=== PATIENT | male | born 1960 | race Caucasian/White ===

== ENCOUNTER 2021-01-23 07:22 | Day surgery (SDC) | payer OTHER, SELFPAY ==
[~2021-01-23] VITALS: Ht 177.8 cm; Wt 104.3 kg
[~2021-01-23 07:22] MED LIST: CEFAZOLIN SOD 1 GM in D5W 50 ML IV ONE
[2021-01-23] MEDS ORDERED: NS 1000 ML IV.SOLN IV ONE (09:35)
[2021-01-23] MEDS ORDERED: SUGAMMADEX SODIUM 200 MG/2 ML VIAL IV ONE (09:35)
[2021-01-23] MEDS ORDERED: fentaNYL CITRATE/PF 100 MCG/2 ML AMP IVP ONE (09:35)
[2021-01-23] MEDS ORDERED: BUPIVACAINE /PF 0.25% 30 ML VIAL INJ ONE (09:35)
[2021-01-23] MEDS ORDERED: DEXAMETHASONE SOD PHOSPHATE 4 MG/ML VIAL IVP ONE (09:35)
[2021-01-23] MEDS ORDERED: PROPOFOL 200MG/ 20ML VIAL (DIPRIVAN) IV ONE (09:35)
[2021-01-23] MEDS ORDERED: ROCURONIUM BROMIDE 10 MG/ML (ZEMURON) IV ONE (09:35)
[2021-01-23] MEDS ORDERED: DESFLURANE 15 MIN GAS INH ONE (09:35)
[2021-01-23] MEDS ORDERED: ONDANSETRON HCL 4 MG/2 ML VIAL IVP ONE (09:35)
[2021-01-23] MEDS ORDERED: LR 1,000 ML IV.SOLN IV ONE (09:35)
[2021-01-23] MEDS ORDERED: MIDAZOLAM HCL 5 MG/5 ML VIAL IVP ONE (09:35)
[2021-01-23] MEDS ORDERED: hydrALAZINE HCL 20 MG/ML VIAL IVP PRN (10:15)
[2021-01-23] MEDS ORDERED: LABETALOL 100 MG/ 20ML VIAL IVP PRN (10:15)
[2021-01-23] MEDS ORDERED: LR 1,000 ML IV SCH (10:15)
[2021-01-23] MEDS ORDERED: ONDANSETRON HCL 4 MG/2 ML VIAL IVP PRN (10:15)
[2021-01-23] MEDS ORDERED: MEPERIDINE HCL/PF 25 MG/ML DISP.SYRIN IVP PRN (10:15)
[2021-01-23] MEDS ORDERED: MIDAZOLAM HCL 2 MG/2 ML VIAL (VERSED) IVP PRN (10:15)
[2021-01-23] MEDS ORDERED: HYDROmorphone 1 MG/ML INJ. CARTRIDGE IVP PRN ×3 (10:15→10:45)
[2021-01-23] MEDS ORDERED: METOCLOPRAMIDE HCL 10 MG/2 ML VIAL IVP PRN (10:15)
[2021-01-23] MEDS ORDERED: D5/0.45 NS 1,000 ML IV SCH (10:45)
[2021-01-23] MEDS ORDERED: HYDROcodone/ACETAMIN 5-325 MG TAB (NORCO/ VICODIN) PO PRN ×2 (10:45)
[2021-01-23 17:57] VITALS: BP_SYST 143
== END 2021-01-23 13:00 | disposition home or self-care (01) ==
LOC: SDS 07:22 → SMU 07:22 → SDS 13:00
PROVIDERS: ATTEND Colon & Rectal Surgery
DX: R22.2 Localized swelling, mass and lump, trunk (principal); I10 Essential (primary) hypertension; K58.9 Irritable bowel syndrome, unspecified; Z20.822 Contact with and (suspected) exposure to COVID-19; Z79.899 Other long term (current) drug therapy
CPT/HCPCS: 27043; 88304; 88311; C9399; J0690; J1100; J2250; J2405; J2704; J3010; J3490; J7030; J7060; J7120; U0003

== ENCOUNTER 2024-01-15 07:52 | Day surgery (SDC) | payer OTHER ==
[~2024-01-15] VITALS: Ht 177.8 cm; Wt 113.4 kg
[~2024-01-15 07:52] MED LIST changes: -CEFAZOLIN SOD 1 GM in D5W 50 ML IV ONE; +CEFAZOLIN SOD 2 GM in D5W 50 ML IV ONE
[2024-01-15] MEDS ORDERED: SCOPOLAMINE HYDROBROMIDE 1 MG PATCH .72 H (TRANSDERM-SCOP) TD ONE (08:12)
[2024-01-15] MEDS ORDERED: CELECOXIB 100 MG CAPSULE ONE (08:12)
[2024-01-15] MEDS ORDERED: ACETAMINOPHEN 500 MG TABLET ONE (08:12)
[2024-01-15] MEDS ORDERED: GABAPENTIN 300 MG CAPSULE ONE (08:13)
[2024-01-15] MEDS ORDERED: oxyCODONE HCL 10 MG TAB.ER.12H PO ONE (08:13)
[2024-01-15] MEDS: SCOPOLAMINE HYDROBROMIDE 1 MG PATCH .72 H (TRANSDERM-SCOP) TD ONE (08:33)
[2024-01-15] MEDS: GABAPENTIN 300 MG CAPSULE PO ONE (08:33)
[2024-01-15] MEDS: ACETAMINOPHEN 500 MG TABLET PO ONE (08:33)
[2024-01-15] MEDS: CELECOXIB 100 MG CAPSULE PO ONE (08:33)
[2024-01-15] MEDS: oxyCODONE HCL 10 MG TAB.ER.12H PO ONE (09:54)
[2024-01-15] MEDS ORDERED: BUPIVACAINE /PF 0.25% 30 ML VIAL INJ ONE (09:55)
[2024-01-15 10:00] VITALS: PULSE 86; RESP 18; TEMP 97.4; O2SAT 99
[2024-01-15] MEDS ORDERED: BISACODYL 10 MG/SUPPOSITORY RC PRN (10:00)
[2024-01-15] MEDS ORDERED: METOCLOPRAMIDE HCL 10 MG/2 ML VIAL IVP PRN (10:00)
[2024-01-15] MEDS ORDERED: DIPHENHYDRAMINE HCL 25 MG CAPSULE PO PRN (10:00)
[2024-01-15] MEDS ORDERED: LACTULOSE 20 GM/30 ML UDC PO PRN (10:00)
[2024-01-15] MEDS ORDERED: LORATADINE 10 MG TABLET PO PRN (11:00)
[2024-01-15] MEDS ORDERED: hydrALAZINE HCL 20 MG/ML VIAL IVP PRN (11:00)
[2024-01-15] MEDS ORDERED: HYDROmorphone 1 MG/ML INJ. CARTRIDGE IVP PRN ×5 (11:00)
[2024-01-15] MEDS ORDERED: oxyCODONE HCL 5 MG TABLET PO PRN ×2 (11:00)
[2024-01-15] MEDS ORDERED: MEPERIDINE HCL/PF 25 MG/ML DISP.SYRIN IVP PRN (11:00)
[2024-01-15] MEDS ORDERED: traMADol HCL HCL 50 MG TABLET (ULTRAM) PO PRN (11:00)
[2024-01-15] MEDS ORDERED: ONDANSETRON HCL 4 MG/2 ML VIAL IVP PRN (11:45)
[2024-01-15 12:05] VITALS: BP_SYST 126
[2024-01-15] MEDS ORDERED: TAMSULOSIN HCL 0.4 MG CAP PO ONE (13:00)
[2024-01-15] MEDS ORDERED: ONDANSETRON HCL 4 MG/2 ML VIAL ONE (13:03)
[2024-01-15] MEDS: ONDANSETRON HCL 4 MG/2 ML VIAL IVP PRN (13:06)
[2024-01-15] MEDS ORDERED: KETOROLAC TROMETHAMINE 10 MG TABLET (TORADOL) PO SCH (14:00)
[2024-01-15] MEDS ORDERED: ACETAMINOPHEN 500 MG TABLET PO SCH (14:00)
[2024-01-15] MEDS: LR 1,000 ML IV SCH (15:40)
[2024-01-15] MEDS ORDERED: SENNOSIDES/DOCUSATE SODIUM 1 TAB TABLET(SENOKOT-S) PO SCH (21:00)
[2024-01-16] MEDS ORDERED: TAMSULOSIN HCL 0.4 MG CAP PO SCH (09:00)
[2024-01-16] MEDS ORDERED: ASPIRIN 81 MG TAB.CHEW PO SCH (09:00)
[2024-01-16] MEDS ORDERED: CELECOXIB 200 MG CAPSULE PO SCH (11:00)
== END 2024-01-15 14:50 | disposition home or self-care (01) ==
LOC: SDS 07:52 → SMU 07:52 → EDSTATUS 09:30 → SDS 14:50
PROVIDERS: ATTEND Student in an Organized Health Care Education/Training Program
DX: M17.11 Unilateral primary osteoarthritis, right knee (principal); I10 Essential (primary) hypertension; E78.5 Hyperlipidemia, unspecified; G47.33 Obstructive sleep apnea (adult) (pediatric); Z90.79 Acquired absence of other genital organ(s); Z98.890 Other specified postprocedural states; Z85.46 Personal history of malignant neoplasm of prostate; Z79.899 Other long term (current) drug therapy
CPT/HCPCS: 87081; 27447; 97162; 64447; 73560; 97110; 97530; 97116; 88305; 88311; J3490 ×3; J0690; J0696; J3465; J2405; J3370; J3010; J7060 ×2; J7120; C1776 ×3